=== PATIENT | male | born 1935 | race Caucasian/White ===

== ENCOUNTER 2021-01-28 20:09 | Emergency (ER) | payer MEDICARE ==
[~2021-01-28] VITALS: Ht 177.8 cm; Wt 72.7 kg
[~2021-01-28 20:09] MED LIST: NORepinephrine 1 mg/ml inj IV ONE; atropine 0.1mg/ml 10ml syringe ONE; dextrose 50%-water 50ml dispensing syringe IV ONE; epiNEPHrine 0.1mg/ml 10ml syringe ONE; sodium bicarbonate (8.4%) 1 mEq/ml syringe ONE
[2021-01-28] MEDS ORDERED: epiNEPHrine 5 MG in NS 250ml IV.SOLN IV SCH (20:45)
[2021-01-28] MEDS ORDERED: NORepinephrine 8mg/ 250ml NS 250 ML IV SCH (21:00)
[2021-01-28] MEDS ORDERED: NORepinephrine inj. 8 MG in dextrose 5%-water 242 ML IV SCH (21:00)
[2021-01-28 22:43] VITALS: BP 20/30
--- NOTE | 2021-01-28 22:48 | NUR ---
PATIENT COVERED IN BLACK TARRY STOOL. PATIENT WAS INTUBATED, TUBE 8 TO 25. NGT IN PLACE. 5 ROUNDS OF EPI, EPI GTT, LEVOPHED GTT, AND BLOOD STARTED BRIEFLY BEFORE PATIENT WAS PRONOUNCED. ABGS TAKEN. CPR FOR TOTAL OF 50 MIN. FEMORAL A LINE AND CENTRAL LINE PLACED. TRANSCUTINOUS PACING WAS TRIED. PATIENT WAS PRONOUNCED AT [address] BRUNER.
--- NOTE | 2021-01-28 22:51 | NUR ---
DAUGHTER, AURELIANO DAVIS, WAS NOTIFIED OF PATIENT PASSING. DAUGHTER # [phone]. ALL PERTINENT QUESTIONS ASKED AND ANSWERED.
--- NOTE | 2021-01-28 23:09 | NUR ---
SPOKE WITH RLVALinda CAPRONJORDAN [employer]PERATOR BRADLY MCFARLANE, PATIENT IS RELEASED.
--- NOTE | 2021-01-28 23:10 | NUR ---
CALL [employer], JAKE, RELEASED PATIENT.
--- NOTE | 2021-01-28 23:19 | NUR ---
EDITH LUTZ FROM [facility] HERE TO RERECORDING MIXER PATIENT. DAUGHTER AURELIANO NOTIFIED.
== END 2021-01-29 00:23 ==
LOC: ER 20:10
DX: I46.9 Cardiac arrest, cause unspecified (principal); R57.1 Hypovolemic shock; K92.2 Gastrointestinal hemorrhage, unspecified; I25.10 Atherosclerotic heart disease of native coronary artery without angina pectoris; Z95.5 Presence of coronary angioplasty implant and graft
CPT/HCPCS: 31500; 36415; 36556; 86885; 86900; 86901; 86920; 92950; 99291; J0171; J0461; 94002; 94760; P9016